=== PATIENT | female | born 1965 | race Caucasian/White ===

== ENCOUNTER 2018-04-08 18:08 | Emergency (ER) | payer BC ==
[2018-04-08 18:30] VITALS: BP 156/95
[2018-04-08] MEDS ORDERED: Lidocaine 2% PF * 5 ML VIAL INJ ONE (18:38)
[2018-04-08] MEDS ORDERED: Tetan/Diph/Pertus SYR(Tdap)* 0.5 ML SYR(BOOSTRIX) use SYR IM ONE (18:39)
--- NOTE | 2018-04-08 18:39 | UC ---
Laceration HPI - HPI Summary HPI Summary: 52 yo female presents with RIGHT elbow laceration. She tells me that earlier today around 1530 she fell and landed on her elbows. Did not hit her head or have LOC. She sustained a laceration to her right elbow. She bandaged the area and continued about her work day until after work prompting her visit to . She is unsure the date of her last tetanus. Denies numbness or tingling. She has very little pain in the elbow. 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 Location: Elbow Mechanism Of Injury: Blunt Trauma Onset/Duration: Sudden Onset Severity: Mild Pain Intensity: 3 Pain Scale Used: 0-10 Numeric - Allergies/Home Medications Allergies/Adverse Reactions: Allergies Allergy/AdvReac Type Severity Reaction Status Date / Time carbamazepine Allergy Rash Verified 04/08/18 18:31 Home Medications: Home Medications Baclofen TAB* [Lioresal TAB*] 10 mg PO BID 04/08/18 [History Confirmed 04/08/18] Gabapentin CAP(*) [Neurontin 300 CAP(*)] 300 mg PO TID 04/08/18 [History Confirmed 04/08/18] lamoTRIgine TAB(*) [LaMICtal TAB(*)] 25 mg PO BID 04/08/18 [History Confirmed ] PMH/Surg Hx/FS Hx/Imm Hx Endocrine History: Hypothyroidism Neurological History: Migraine Psychological History: Anxiety, Depression, Bipolar Disorder - Surgical History Surgical History: Yes Surgery Procedure, Year, and Place: app - Family History Known Family History: Positive: Unknown - Social History Occupation: Employed Full-time Lives: With Family Alcohol Use: Rare Substance Use Type: None Smoking Status (MU): Never Smoked Tobacco Review of Systems All Other Systems Reviewed And Are Negative: Yes Constitutional: Positive: Negative Skin: Positive: Other - Laceration right elbow Respiratory: Positive: Negative Cardiovascular: Positive: Negative Musculoskeletal: Positive: Negative Neurological: Positive: Negative Psychological: Positive: Negative Physical Exam - Summary Physical Exam Summary: GENERAL: NAD. WDWN. No pain distress. SKIN: 4.0 cm crescent shaped laceration to right elbow. CHEST: No accessory muscle use. Breathing comfortably and in no distress. CV: Pulses intact. Cap refill <2seconds MSK: FROM including supination and pronation without pain at right elbow. NTTP. NEURO: Alert. PSYCH: Age appropriate behavior. Triage Information Reviewed: Yes Vital Signs: Initial Vital Signs Temp 99.3 F 04/08/18 18:25 Pulse 108 04/08/18 18:25 Resp 16 04/08/18 18:25 BP 156/95 04/08/18 18:25 Pulse Ox 99 04/08/18 18:25 Vital Signs Reviewed: Yes Laceration Repair - Laceration Repair 1 Description: Stellate Laceration Size After Repair: Length (cm) - 4.0 Modified For Repair: No Anesthesia Used: 2.0% Lido Irrigation With Pressure Irrigation Device: Yes Closure Material: Sutures - #10 Closure Method: Single Layer Suture Of: Skin Suture Type: Prolene - 4-0 Laceration Course/Dx - Course/Dx Course Of Treatment: XR: No radiologist reading after 1800, therefore wet read by myself is negative for fracture. The procedure was explained to the pt and all questions were answered. A time out was performed, witnessed, and signed. The area was irrigated with 250mL sterile saline. 2mL of 2% lidocaine without epi was administered and good anesthetization was achieved. In the usual sterile fashion, TEN 4-0 prolene interrupted sutures were placed. The wound was bandaged with telfa and neosporin. Pt tolerated procedure well. Will place her on keflex for infection coverage. - Diagnosis Provider Diagnosis: Laceration of right elbow Discharge - Sign-Out/Discharge Documenting (check all that apply): Patient Departure All imaging exams completed and their final reports reviewed: No - Discharge Plan Condition: Stable Disposition: HOME Prescriptions: Cephalexin CAP* [Keflex CAP*] 500 mg PO TID #21 cap Patient Education Materials: Care For Your Stitches (DC), Laceration (DC) Referrals: Twila Roberts, CAPACITY MANAGER [Primary Care Provider] - Additional Instructions: If you develop a fever, shortness of breath, chest pain, new or worsening symptoms - please call your PCP or go to the ED. Your blood pressure was high at todays visit. Please see your primary provider within 4 weeks for recheck and re-evaluation. 1) Please keep the area bandaged, clean, dry, and intact for the next 24- 48hours. 2) If you develop a fever, colored or thick discharge, increased pain or swelling - please call your PCP or go to the ED. 3) Please return in 12-14 days to have your TEN sutures removed. - Billing Disposition and Condition Condition: STABLE Disposition: Home - Attestation Statements Provider Attestation: Per institutional requirements, I have reviewed the chart, however, I was not consulted specifically or made aware of this patient by the midlevel provider. I did not personally evaluate, interact with , or disposition this patient.
--- NOTE | 2018-04-09 20:07 | UC ---
- Progress Note Progress Note: Radiologist reading of right elbow x-ray from April 08, 2018 is normal. Provider interpretation from the same date is also normal therefore there is no discrepancy. Course/Dx - Diagnoses Provider Diagnoses: Laceration of right elbow Discharge - Sign-Out/Discharge Documenting (check all that apply): Patient Departure All imaging exams completed and their final reports reviewed: Yes - Discharge Plan Condition: Stable Disposition: HOME Prescriptions: Cephalexin CAP* [Keflex CAP*] 500 mg PO TID #21 cap Patient Education Materials: Care For Your Stitches (DC), Laceration (DC) Referrals: Twila Roberts, GLAZE SUPERVISOR [Primary Care Provider] - Additional Instructions: If you develop a fever, shortness of breath, chest pain, new or worsening symptoms - please call your PCP or go to the ED. Your blood pressure was high at todays visit. Please see your primary provider within 4 weeks for recheck and re-evaluation. 1) Please keep the area bandaged, clean, dry, and intact for the next 24- 48hours. 2) If you develop a fever, colored or thick discharge, increased pain or swelling - please call your PCP or go to the ED. 3) Please return in 12-14 days to have your TEN sutures removed. - Billing Disposition and Condition Condition: STABLE Disposition: Home
== END 2018-04-08 20:11 | disposition home or self-care (01) ==
LOC: UCEAST 18:08
DX: S51.011A Laceration without foreign body of right elbow, initial encounter (principal); W19.XXXA Unspecified fall, initial encounter; Y92.9 Unspecified place or not applicable; Y99.0 Civilian activity done for income or pay; F31.9 Bipolar disorder, unspecified; Z88.8 Allergy status to other drugs, medicaments and biological substances
CPT/HCPCS: 12002; 90715; 99202; G0463

== ENCOUNTER 2018-09-28 09:02 | Emergency (ER) | payer BC ==
[2018-09-28] MEDS ORDERED: LORazepam TAB(*) 1 MG PO ONE (09:23)
[2018-09-28 09:32] LABS: ABS Basophils 0.1 10^3/ul (0-0.2); ABS Eosinophils 0.1 10^3/ul (0-0.6); ABS Lymphocytes 1.4 10^3/ul (1.0-4.8); ABS Monocytes 0.5 10^3/ul (0-0.8); ABS Neutrophils 7.2 10^3/ul (1.5-7.7); Eosinophil % 0.8 %; Hematocrit 44 % (35-47); Hemoglobin 14.4 g/dL (12.0-16.0); Lymphocyte % 15.3 %; Mean Corpuscular HGB Conc 33 g/dL (31-36); Mean Corpuscular Hemoglobin 29 pg (27-31); Mean Corpuscular Volume 90 fL (80-97); Mean Platelet Volume 7.4 fL (7.4-10.4); Platelet Count 315 10^3/uL (150-450); Red Blood Count 4.91 10^6 /uL (3.70-4.87); Red Cell Distribution Width 15 % (10-15); White Blood Count 9.3 10^3/uL (3.5-10.8)
[2018-09-28 09:38] LABS: INR 0.95 (0.82-1.09)
[2018-09-28 10:00] LABS: Albumin 4.3 g/dL (3.2-5.2); BUN/Creatinine Ratio 16.5 (8-20); EGFR African American 84.7 (>60); Globulin 2.2 g/dL (2-4); Potassium 3.5 mmol/L (3.5-5.0); Total Bilirubin 0.5 mg/dL (0.2-1.0); Total Protein 6.5 g/dL (6.4-8.9)
[2018-09-28 13:17] VITALS: BP 142/82
--- NOTE | 2018-09-28 14:45 | ED ---
Psychiatric Complaint - HPI Summary HPI Summary: Patient is a 53-year-old female who presents to the ED with palpitations. Patient states she's never had palpation in the past, however has a history of anxiety related to work and her boss and states immediately on arrival at work today, she began to feel flustered, anxious with palpitations. Patient states while this feels like anxiety, she has never had palpitations related to her anxiety. She does not feel like herself heart is skipping a beat, denies any CP , the felt like her heart was racing. She endorses some tingling to the bilateral extremities, which is now resolved. This was only occurring when she felt as though she was hyperventilating. She states she has had a lot of stressors at work and is tearful on arrival. She states she would like to talk to mental health school community relations coordinator, however denies any SI or HI. 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 Onset/Duration: Sudden Onset Timing: Constant Severity Initially: Moderate Severity Currently: Mild Character: Anxious Aggravating Factor(s): Recent Stress Alleviating Factor(s): Nothing Associated Signs And Symptoms: Positive: Negative - Allergies/Home Medications Allergies/Adverse Reactions: Allergies Allergy/AdvReac Type Severity Reaction Status Date / Time carbamazepine Allergy Rash Verified 04/08/18 18:31 Home Medications: Home Medications Amphetamine/Dextroamph ER(NF) [Adderal XR (NF)] 25 mg PO QAM 09/28/18 [History Confirmed 09/28/18] Dextroamphetamine/Amphetamine [Dextroamp-Amphetamin 30 mg Tab] 30 mg PO DAILY [History Confirmed 09/28/18] Levothyroxine TAB* [Synthroid TAB*] 150 mcg PO DAILY 09/28/18 [History Confirmed 09/28/18] Zolpidem TAB* [Ambien TAB*] 10 mg PO BEDTIME PRN 09/28/18 [History Confirmed ] lamoTRIgine TAB(*) [LaMICtal TAB(*)] 200 mg PO BEDTIME 09/28/18 [History Confirmed 09/28/18] PMH/Surg Hx/FS Hx/Imm Hx Previously Healthy: Yes Psychiatric History: Denies: Hx Eating Disorder, Hx of Violent Episodes Against Others - Surgical History Surgery Procedure, Year, and Place: appy - Immunization History Date of Tetanus Vaccine: Unk Date of Influenza Vaccine: 12/22/14 Hx Pertussis Vaccination: No Immunizations Up to Date: Yes Infectious Disease History: No Infectious Disease History: Denies: Traveled Outside the [place] in Last 30 Days - Family History Known Family History: Positive: Unknown - Social History Occupation: Employed Full-time Lives: With Family Alcohol Use: Rare Hx Substance Use: No Substance Use Type: Reports: None Hx Tobacco Use: No Smoking Status (MU): Never Smoked Tobacco Review of Systems Constitutional: Negative Negative: Fever, Chills, Fatigue, Skin Diaphoresis Positive: Palpitations. Negative: Chest Pain Negative: Shortness Of Breath, Cough Genitourinary: Negative Positive: no symptoms reported, see HPI Negative: Arthralgia Skin: Negative Neurological: Negative Positive: Anxious All Other Systems Reviewed And Are Negative: Yes Physical Exam Triage Information Reviewed: Yes Vital Signs On Initial Exam: Initial Vitals Temp Pulse Resp BP Pulse Ox 97.2 F 110 20 151/75 100 09/28/18 09:07 09/28/18 09:07 09/28/18 09:07 09/28/18 09:07 09/28/18 09:07 Vital Signs Reviewed: Yes Appearance: Positive: Well-Appearing, Well-Nourished Skin: Positive: Warm, Skin Color Reflects Adequate Perfusion Head/Face: Positive: Normal Head/Face Inspection Eyes: Positive: EOMI, Conjunctiva Clear Neck: Positive: Supple Respiratory/Lung Sounds: Positive: Clear to Auscultation, Breath Sounds Present Cardiovascular: Positive: RRR Musculoskeletal: Positive: Strength/ROM Intact Neurological: Positive: Speech Normal Psychiatric: Positive: Anxious AVPU Assessment: Alert Diagnostics - Vital Signs Vital Signs Temp Pulse Resp BP Pulse Ox 09/28/18 13:17 99.1 F 115 15 142/82 100 09/28/18 13:00 116 21 98 09/28/18 12:58 120 17 142/82 98 09/28/18 12:28 117 20 135/79 99 09/28/18 12:00 108 19 100 09/28/18 11:57 114 17 137/81 97 09/28/18 11:28 112 29 129/89 100 09/28/18 11:00 126 25 99 09/28/18 10:58 120 16 144/78 99 09/28/18 10:27 102 20 130/75 98 09/28/18 10:00 139 24 82 09/28/18 09:58 115 33 135/71 97 09/28/18 09:44 96 22 121/80 98 09/28/18 09:39 20 09/28/18 09:27 101 24 100 09/28/18 09:07 97.2 F 110 20 151/75 100 - Laboratory Lab Results: Lab Results 09/28/18 09/28/18 09/28/18 Range/Units 09:25 09:25 09:25 WBC 9.3 (3.5-10.8) 10^3/uL RBC 4.91 H (3.70-4.87) 10^6 /uL Hgb 14.4 (12.0-16.0) g/dL Hct 44 (35-47) % MCV 90 (80-97) fL MCH 29 (27-31) pg MCHC 33 (31-36) g/dL RDW 15 (10-15) % Plt Count 315 (150-450) 10^3/uL MPV 7.4 (7.4-10.4) fL Neut % (Auto) 77.6 % Lymph % (Auto) 15.3 % [place] % (Auto) 5.5 % Eos % (Auto) 0.8 % Baso % (Auto) 0.8 % Absolute Neuts (auto) 7.2 (1.5-7.7) 10^3/ul Absolute Lymphs (auto) 1.4 (1.0-4.8) 10^3/ul Absolute Monos (auto) 0.5 (0-0.8) 10^3/ul Absolute Eos (auto) 0.1 (0-0.6) 10^3/ul Absolute Basos (auto) 0.1 (0-0.2) 10^3/ul Absolute Nucleated RBC 0.0 10^3/ul Nucleated RBC % 0.0 INR (Anticoag Therapy) 0.95 (0.82-1.09) Sodium 140 (135-145) mmol/L Potassium 3.5 (3.5-5.0) mmol/L Chloride 107 (101-111) mmol/L Carbon Dioxide 24 (22-32) mmol/L Anion Gap 9 (2-11) mmol/L BUN 14 (6-24) mg/dL Creatinine 0.85 (0.51-0.95) mg/dL Est GFR ( Amer) 84.7 (>60) Est GFR (Non-Af Amer) 70.0 (>60) BUN/Creatinine Ratio 16.5 (8-20) Glucose 164 H (70-100) mg/dL Calcium 9.0 (8.6-10.3) mg/dL Total Bilirubin 0.50 (0.2-1.0) mg/dL AST 21 (13-39) U/L ALT 33 (7-52) U/L Alkaline Phosphatase 63 (34-104) U/L Troponin I 0.00 (<0.04) ng/mL Total Protein 6.5 (6.4-8.9) g/dL Albumin 4.3 (3.2-5.2) g/dL Globulin 2.2 (2-4) g/dL Albumin/Globulin Ratio 2.0 (1-3) // Range/Units 12:15 WBC (3.5-10.8) 10^3/uL RBC (3.70-4.87) 10^6 /uL Hgb (12.0-16.0) g/dL Hct (35-47) % MCV (80-97) fL MCH (27-31) pg MCHC (31-36) g/dL RDW (10-15) % Plt Count (150-450) 10^3/uL MPV (7.4-10.4) fL Neut % (Auto) % Lymph % (Auto) % [place] % (Auto) % Eos % (Auto) % Baso % (Auto) % Absolute Neuts (auto) (1.5-7.7) 10^3/ul Absolute Lymphs (auto) (1.0-4.8) 10^3/ul Absolute Monos (auto) (0-0.8) 10^3/ul Absolute Eos (auto) (0-0.6) 10^3/ul Absolute Basos (auto) (0-0.2) 10^3/ul Absolute Nucleated RBC 10^3/ul Nucleated RBC % INR (Anticoag Therapy) (0.82-1.09) Sodium (135-145) mmol/L Potassium (3.5-5.0) mmol/L Chloride (101-111) mmol/L Carbon Dioxide (22-32) mmol/L Anion Gap (2-11) mmol/L BUN (6-24) mg/dL Creatinine (0.51-0.95) mg/dL Est GFR ( Amer) (>60) Est GFR (Non-Af Amer) (>60) BUN/Creatinine Ratio (8-20) Glucose (70-100) mg/dL Calcium (8.6-10.3) mg/dL Total Bilirubin (0.2-1.0) mg/dL AST (13-39) U/L ALT (7-52) U/L Alkaline Phosphatase (34-104) U/L Troponin I 0.00 (<0.04) ng/mL Total Protein (6.4-8.9) g/dL Albumin (3.2-5.2) g/dL Globulin (2-4) g/dL Albumin/Globulin Ratio (1-3) Result Diagrams: 09/28/18 09:25 09/28/18 09:25 Lab Statement: Any lab studies that have been ordered have been reviewed, and results considered in the medical decision making process. Course/Dx - Course Course Of Treatment: During this course treatment, the patient is evaluated for symptoms of anxiety and palpitations prior to arrival. She states symptoms have now resolved, however she is very tearful on arrival and states she is having a tough time at work with a lot of anxiety around her boss. She is given an Ativan in the ED which improved her symptoms. EKG obtained which was normal sinus rhythm. Labs obtained including 2 troponins, both of which were 0.00. She continues to deny any symptoms while in the ED. Mental health evaluation completed and she will be discharged home with anxiety. She is given a note for work. - Differential Dx/Clinical Impression Differential Diagnosis/HQI/PQRI: Positive: Other - palpitations, heart racing, depression Provider Diagnosis: Anxiety Discharge - Sign-Out/Discharge Documenting (check all that apply): Patient Departure Patient Received Moderate/Deep Sedation with Procedure: No - Discharge Plan Condition: Stable Disposition: HOME Patient Education Materials: Anxiety (ED) Forms: *Work Release Referrals: Merlene Duke [Primary Care Provider] - - Billing Disposition and Condition Condition: STABLE Disposition: Home
== END 2018-09-28 13:17 | disposition home or self-care (01) ==
LOC: ED 09:02
DX: F41.9 Anxiety disorder, unspecified (principal); Z88.8 Allergy status to other drugs, medicaments and biological substances; Z79.899 Other long term (current) drug therapy
CPT/HCPCS: 36415; 80053; 84484; 85025; 85610; 93005; 99285; A9270-GY